=== PATIENT | male | born 1985 | race Asian ===

== ENCOUNTER 2020-04-22 16:53 | Emergency (ER) | payer MEDICARE ==
[~2020-04-22] VITALS: Ht 175.3 cm; Wt 66.8 kg
[2020-04-22 17:06] VITALS: BP 119/75
[2020-04-22] MEDS ORDERED: LIDOcaine Viscous 15ml cup MM STA (19:02)
[2020-04-22] MEDS ORDERED: PENI500T2 PO (19:13)
[2020-04-22] MEDS ORDERED: IBUP-1985 PO (19:13)
[2020-04-22] MEDS ORDERED: ACET-1131 PO (19:13)
== END 2020-04-22 19:32 | disposition home or self-care (01) ==
LOC: ER 16:54
DX: K08.89 Other specified disorders of teeth and supporting structures (principal); Z59.0 Homelessness; Z88.5 Allergy status to narcotic agent; Z79.899 Other long term (current) drug therapy
CPT/HCPCS: 99283